=== PATIENT | female | born 1975 | race African-American/Black ===

== ENCOUNTER 2017-04-17 17:07 | Observation (INO) | payer OTHER ==
--- NOTE | ~2017-04-17 | EKG ---
PATIENT: TALI BILLINGS UNIT #: [id number] Ventricular Rate: 75 BPM Atrial Rate: 75 BPM P-R Interval: 130 ms QRS Duration: 86 ms Q-T Interval: 416 ms QTC Calculation(Bezet): 464 ms P [place]: 50 degrees Calculated R [place]: 60 degrees Calculated T [place]: 43 degrees Diagnosis Line: Normal sinus rhythm Diagnosis Line: Normal ECG Diagnosis Line: When compared with ECG of 10-NOV-2016 03:44, Diagnosis Line: No significant change was found Diagnosis Line: Confirmed by JUAN MANUEL MADRIGAL MD ([id number]) on Diagnosis Line: 04/18/2017 10:39:25 PM INTERPRETING MD: KRERIE
--- NOTE | ~2017-04-17 | EKG ---
PATIENT: TALI BILLINGS UNIT #: [id number] Ventricular Rate: 80 BPM Atrial Rate: 80 BPM P-R Interval: 156 ms QRS Duration: 74 ms Q-T Interval: 410 ms QTC Calculation(Bezet): 472 ms P [place]: 58 degrees Calculated R [place]: 52 degrees Calculated T [place]: 36 degrees Diagnosis Line: Suspect unspecified pacemaker failure Diagnosis Line: Normal sinus rhythm Diagnosis Line: Normal ECG Diagnosis Line: No previous ECGs available Diagnosis Line: Confirmed by ANTONI MACDONALD MD ([id number]) on Diagnosis Line: 04/20/2017 8:39:00 AM INTERPRETING MD: TORRES MCCALL
--- NOTE | ~2017-04-17 | TH ---
Unit #: [id number] #: [id number] Patient: TALI BILLINGS [id number] [address] [address] [id number] I MR#: [id number] NAME: TALI BILLINGS : 1975 SEX: F STUDY DATE/TIME: UNIT: [facility] ROOM: 568 STUDY DESCRIPTION: Cardiolite imaging. Attending Physician: David Suarez M.D. Primary Care Physician: Beth Pérez M.D. CARDIOLOGY REPORT EXAM Cardiolite imaging. PROCEDURE Using technetium 99m labeled Cardiolite, rest and stress SPECT images were obtained. Multiple SPECT images were obtained in various views, including horizontal and vertical long axis and short axis views of the left ventricle. Images were obtained by gated SPECT method. The patient was administered 9.58 mCi of Cardiolite at rest. The patient was administered 29.9 mCi of Cardiolite at peak exercise. Total exercise time was 5 minutes 53 seconds. On the stress images there is a small area of mild decreased isotope activity in the anteroapical wall. The rest images show normal perfusion. Comparing rest and stress images, a very small area of possible stress induced ischemia involving the anteroapical wall of the left ventricle cannot be ruled out. The left ventricular ejection fraction is calculated to be 70%. There is no focal wall motion abnormality seen. CONCLUSION 1. A very small area of possible stress induced ischemia involving the anteroapical wall of the left ventricle cannot be ruled out. Breast tissue artifact cannot be ruled out. 2. The left ventricular ejection fraction is calculated to be 70%. 3. There is no focal wall motion abnormality seen. 4. Technically limited study. Clinical correlation is requested. Dictated by... Judith Howard TD: 04/19/2017 10:00 JOB #: [id number] CC: Rishabh Nance M.D. Unit #: [id number] #: [id number] Patient: TALI BILLINGS CARDIOLOGY REPORT Page 1 of 1 X Genia Saavedra MD <ELECTRONICALLY SIGNED> 05/15/17 1429 CARDIOLOGY REPORT
--- NOTE | ~2017-04-17 | DS ---
Unit #: [id number] #: [id number] Patient: TALI BILLINGS [id number] [address] [address] [id number] I MR#: [id number] NAME: TALI BILLINGS ROOM: 568 Age: 41 Sex: F Admission Date: 04/18/2017 : 1975 Discharge Date: Attending Physician: David Suarez M.D. Primary Care Physician: Beth Pérez M.D. DISCHARGE SUMMARY SHORT STAY SUMMARY REASON FOR ADMISSION Chest pain. HISTORY OF PRESENT ILLNESS The patient is a 41-year-old female with no prior history of coronary artery disease or ischemic workup in the past. She has a history of rheumatoid arthritis and lupus and has been having an increase in joint swelling and fatigue lately. The patient has been in her usual state of health, except she is fatigued when she exerts herself. She has decreased activity tolerance that she is attributing to her rheumatoid arthritis. Yesterday she developed a substernal heaviness in the chest that she attributed to anxiety but then when it persisted, she came to the hospital for further evaluation. It is nonradiating. There were no ameliorating symptoms. PAST MEDICAL HISTORY 1. Cervical stenosis. 2. Diskectomy and fusion in the past. 3. Lupus. 4. Rheumatoid arthritis. 5. GERD. 6. Anxiety. 7. Tubal ligation. SOCIAL HISTORY The patient does not smoke. No alcohol or drug abuse. FAMILY HISTORY Nonsignificant for coronary artery disease. ALLERGIES Sulfa. HOME MEDICINES 1. Hydrocodone/Tylenol 10/325 q.6 hours for pain. 2. Neurontin 100 mg t.i.d. 3. Folic acid 1 mg p.o. daily. REVIEW OF SYSTEMS Complains of fatigue and substernal chest tightness. No fever, chills, cough, nausea, vomiting, diarrhea, dizziness, lightheadedness, headache or change in visual keys. All other review of systems is negative. Unit #: [id number] #: [id number] Patient: TALI BILLINGS PHYSICAL EXAMINATION GENERAL: The patient is awake and alert. No acute distress. SKIN: Color is pink. Skin is warm and dry. NEUROLOGIC: No focal motor or sensory deficits. VITAL SIGNS: Afebrile. Heart rate 93, blood pressure 152/82. HEENT: Pupils are equal, round and reactive. NECK: Normal carotid upstrokes. No auscultated bruit. Negative JVD lying supine. Negative hepatojugular reflex. CHEST: Respirations are regular, unlabored at rest. Bilateral breath sounds have good air entry through all lung keys. No crackles, rubs or wheezes are heard. HEART: S1, S2. Regular rate and rhythm. No murmurs, rubs or gallops. ABDOMEN: Abdomen is soft, nontender, nondistended. Positive bowel sounds x4 quadrants. No ascites noted. EXTREMITIES: Bilateral lower extremities have no pretibial pitting edema. DP/PT pulses are 2+. Cap refill is less than 3 seconds. Second index finger with joint swelling in the middle metacarpal. MUSCULOSKELETAL: Moves all extremities without difficulty. DIAGNOSTICS CARDIOVASCULAR: EKG shows sinus rhythm, nonspecific T wave abnormalities in V1 through V3. IMAGING: Chest x-ray was normal. LABS: White blood cell count 6.9, hemoglobin 10.7, hematocrit 32.9, platelet count 313. Sodium 137, potassium 2.9, chloride 104, CO2 24, BUN 7, creatinine 0.7, glucose 121. Troponin negative x3. IMPRESSION 1. Atypical chest pain. 2. Anxiety. 3. Rheumatoid arthritis. 4. Lupus. PLAN The patient has ruled out for MS. There are 3 negative cardiac enzymes. EKG has nonspecific T wave abnormalities. No ischemic workup in the past. Will plan on exercise Cardiolite today. The patient has had a tubal ligation. Does not need test and denies being . If the stress test is negative today, patient will be discharged home. Dictated by... Christi Thompson APRN for Judith Paniagua/sabine TD: 04/18/2017 10:28 JOB #: [id number] Unit #: [id number] #: [id number] Patient: TALI BILLINGS DISCHARGE SUMMARY Page 1 of 1 X X DISCHARGE SUMMARY
--- NOTE | ~2017-04-17 | CR72 ---
[facility] A Service of [facility] & [facility] RADIOLOGY TEXT RESULTS PATIENT: TALI BILLINGS LOCATION: [facility] 568-01 : [birth year] UNIT #: [id number] AGE: [address]: Carmine Suarez MD SEX: F ORDER DR: [id number] [facility] [address]. [place], [place] [address] [id number] MR#: [id number] Acc #: [id number] NAME: TALI BILLINGS : 1975 SEX: F STUDY DATE/TIME: 04/17/2017 17:57 UNIT: [facility] ROOM: STUDY DESCRIPTION: CR Chest Single View Portable Attending Physician: Cindy Bowie M.D. Ordering Physician: Janak López M.D. Primary Care Physician: Beth Pérez M.D. MEDICAL IMAGING REPORT This report is preliminary unless electronic signature is present EXAM Portable chest. HISTORY Chest pain, shortness of air, onset today. COMPARISON 11/10/2016 FINDINGS A single AP view of the chest shows both lungs to be clear. The heart is normal in size. The mediastinal contour is normal. No significant bone abnormalities are seen. IMPRESSION Normal AP portable chest. Dictated by... Briana Sparks M.D. THIS IS AN ELECTRONICALLY VERIFIED REPORT Briana Sparks M.D. at 04/18/2017 9:15 PM Mitchel TD: 04/17/2017 21:34 JOB #: [id number] MEDICAL IMAGING REPORT Page 1 of 1 COPY
--- NOTE | ~2017-04-17 | ST ---
Unit #: [id number] #: [id number] Patient: TALI BILLINGS [id number] [address] [address] [id number] I MR#: [id number] NAME: TALI BILLINGS : 1975 SEX: F STUDY DATE/TIME: 04/18/2017 UNIT: [facility] ROOM: [facility] STUDY DESCRIPTION: Exercise stress test Attending Physician: David Suarez M.D. Primary Care Physician: Beth Pérez M.D. CARDIOLOGY REPORT PROCEDURES PERFORMED EKG portion of exercise Cardiolite. REASON FOR PROCEDURE Chest pain. PROCEDURE Baseline EKG shows normal sinus rhythm. No significant ST changes. The patient exercised on the treadmill for a total of 5 minutes, 53 seconds, achieving a workload of 7 METS with resting heart rate 93 beats per minute, maximum heart rate of 154 beats per minute, which is 83% of the maximum age-predicted heart rate. Patient was asymptomatic. There were no significant diagnostic changes to the ST segment to suggest ischemia. No ectopy or arrhythmias were noted. Test was stopped due to achieving target heart rate and fatigue. IMPRESSION 1. Negative EKG portion of exercise Cardiolite. 2. No sustained arrhythmias. 3. Asymptomatic during stress. 4. Please correlate with Cardiolite imaging. Dictated by... Christi Thompson APRN for Judith Paniagua/sabine TD: 04/18/2017 13:45 JOB #: [id number] Unit #: [id number] #: [id number] Patient: TALI BILLINGS CARDIOLOGY REPORT Page 1 of 1 X CARDIOLOGY REPORT
--- NOTE | ~2017-04-17 | EKG ---
PATIENT: TALI BILLINGS UNIT #: [id number] Ventricular Rate: 71 BPM Atrial Rate: 71 BPM P-R Interval: 142 ms QRS Duration: 76 ms Q-T Interval: 394 ms QTC Calculation(Bezet): 428 ms P [place]: 52 degrees Calculated R [place]: 61 degrees Calculated T [place]: 30 degrees Diagnosis Line: Normal sinus rhythm Diagnosis Line: Nonspecific T wave abnormality Diagnosis Line: Abnormal ECG Diagnosis Line: No previous ECGs available Diagnosis Line: Confirmed by ANTONI MACDONALD MD ([id number]) on Diagnosis Line: 04/20/2017 8:38:54 AM INTERPRETING MD: TORRES MCCALL
[~2017-04-17 17:07] MED LIST: FOLIC ACID1 MG PO; HUMIRA40 MG/0.1 SQ; HYDROCODONE-APA1 T58 PO; NEURONTIN300 MG PO; OMEPRAZOLE40 M1 PO; PERCOCET 10/3251 TAB PO; PHENERGAN12.5 MG PO; PROTONIX PO; RAYOS2 MG PO
[2017-04-17 18:05] LABS: POC - TROPONIN <0.05 ng/mL (<=0.05)
[2017-04-17 18:13] LABS: BASOPHIL% 0.7 % (0-2.5); EOSINOPHIL# 0.3 X10e3 (0-0.7); EOSINOPHIL% 4.5 % (0.0-7.0); HEMOGLOBIN 11.3 gm/dL (12.0-16.0); LYMPHOCYTE# 2.6 X10e3 (1.0-3.5); LYMPHOCYTE% 37.6 % (17.0-45.0); MEAN CELL VOLUME 89.8 FL (83-96); MEAN CORPUSCULAR HEMOGLOBIN 29.1 PG (28-34); MEAN CORPUSCULAR HGB CONC 32.4 g/dL (30-36); MEAN PLATELET VOLUME 8.7 FL (6.5-11.5); MONOCYTE# 0.4 X10e3 (0-1.0); MONOCYTE% 6.5 % (3.0-12.0); NEUTROPHIL# 3.5 X10e3 (1.5-7.1); NEUTROPHIL% 50.7 % (40-75); PLATELET COUNT 333 X10e3 (140-420); RED CELL DISTRIBUTION WIDTH 13.9 % (11.0-15.5); WHITE BLOOD COUNT 6.9 X10e3 (4.0-10.5)
[2017-04-17 18:16] LABS: DIFF IND NO
[2017-04-17 18:39] LABS: ALBUMIN SERUM 3.9 g/dL (3.5-5.0); BILIRUBIN, DIRECT 0.1 mg/dL (0.0-0.2); BILIRUBIN,INDIRECT 0.1 mg/dL (0.0-0.9); BILIRUBIN,TOTAL 0.2 mg/dL (0.2-2.0); CALCIUM SERUM 8.6 mg/dL (8.4-10.2); CREATININE SERUM 0.7 mg/dL (0.6-1.4); GLOM FILT RATE Estimated 126.5 mL/min (>60); PROTEIN TOTAL SERUM 7.7 g/dL (6.0-8.3)
[2017-04-17 18:40] LABS: POTASSIUM 2.9 mmol/L (3.5-5.1)
[2017-04-17 20:20] LABS: POC - CKMB 1.1 ng/mL (0.0-7.9); POC - TROPONIN <0.05 ng/mL (<=0.05)
[2017-04-18] MEDS ORDERED: HYDROCODON-ACE1 EAC5 PO (00:10)
[2017-04-18] MEDS ORDERED: FOLIC ACID1 MG PO (00:11)
[2017-04-18] MEDS ORDERED: NEURONTIN100 MG PO (00:11)
[2017-04-18 06:33] LABS: BASOPHIL% 0.6 % (0-2.5); EOSINOPHIL# 0.2 X10e3 (0-0.7); EOSINOPHIL% 2.7 % (0.0-7.0); HEMATOCRIT 32.9 % (35.0-45.0); HEMOGLOBIN 10.7 gm/dL (12.0-16.0); LYMPHOCYTE% 28.6 % (17.0-45.0); MEAN CELL VOLUME 89.9 FL (83-96); MEAN CORPUSCULAR HEMOGLOBIN 29.2 PG (28-34); MEAN CORPUSCULAR HGB CONC 32.5 g/dL (30-36); MEAN PLATELET VOLUME 8.6 FL (6.5-11.5); MONOCYTE# 0.4 X10e3 (0-1.0); NEUTROPHIL# 4.3 X10e3 (1.5-7.1); NEUTROPHIL% 62.1 % (40-75); PLATELET COUNT 313 X10e3 (140-420); RED BLOOD COUNT 3.66 X10e (3.90-5.30); WHITE BLOOD COUNT 6.9 X10e3 (4.0-10.5)
[2017-04-18 06:42] LABS: DIFF IND NO
[2017-04-18 07:53] LABS: CHOLESTEROL 135 mg/dL (0-200); HDL CHOLESTEROL 42 mg/dL (35-95); LDL CHOLESTEROL 79 mg/dL (-130); LDL/HDL RATIO 2 RATIO (0-4); TRIGLYCERIDES 72 mg/dL (10-160)
[2017-04-18 08:07] LABS: %MB 1.7 % (0.0-4.0); MB 1.9 ng/ml
[2017-04-18 09:34] LABS: CALCIUM SERUM 8.7 mg/dL (8.4-10.2); CREATININE SERUM 0.5 mg/dL (0.6-1.4); GLOM FILT RATE Estimated 141.3 mL/min (>60); POTASSIUM 3.7 mmol/L (3.5-5.1)
== END 2017-04-18 16:44 | disposition home or self-care (01) ==
LOC: CED 17:07 → CEDOF 04-18 00:50 → CED 04-18 01:00 → CEDOF 04-18 01:00 → C5C 04-18 08:36
PROVIDERS: Emergency Medicine
DX: R07.89 Other chest pain (principal); F41.9 Anxiety disorder, unspecified; M06.9 Rheumatoid arthritis, unspecified; M32.9 Systemic lupus erythematosus, unspecified; K21.9 Gastro-esophageal reflux disease without esophagitis; Z98.1 Arthrodesis status; Z88.2 Allergy status to sulfonamides
CPT/HCPCS: 36415; 71010; 78452; 80048; 80061; 80076; 82550; 82553; 84443; 84484; 85025; 93005; 93017; 96361; 96372; 96374; 99285; A9500; G0378; J1650; J1885; J2060